=== PATIENT | male | born 1980 | race Caucasian/White ===

== ENCOUNTER 2020-11-01 07:03 | Outpatient (CLI) | payer OTHER ==
--- NOTE | 2020-11-01 13:23 | MRI Report ---
PROCEDURE: Lumbar Spine W/O INDICATIONS: LOW BACK PAIN TECHNIQUE: Noncontrast sagittal T1 spin echo and T2 fast echo, sagittal STIR, axial T1 and T2 fast spin echo thr ough the lumbar spine. In cases with scoliosis, additional coronal T2 fast spin echo may be performe d. COMPARISON: None. FINDINGS: Image quality: Excellent. Alignment and Curvature: There is normal bony alignment. Bone Marrow: Marrow is of normal overall signal. No acute vertebral body compression fractures. Spinal Cord: Conus medullaris terminates at the L1-L2 level. Visualized cord demonstrates normal si gnal and size. Paraspinous Soft Tissues: No paravertebral masses. Discs: Minimal desiccation is present L5-S1. L1-L2: No disc bulge, spinal stenosis or foraminal narrowing. L2-L3: Minimal disc bulge without spinal stenosis or foraminal narrowing. L3-L4: Minimal disc bulge without spinal stenosis. Minimal bilateral foraminal narrowing. Epidural lipomatosis is present. L4-L5: Minimal disc bulge without spinal stenosis or foraminal narrowing. Epidural lipomatosis is p resent. L5-S1: Minimal disc bulge without spinal stenosis. Minimal bilateral foraminal narrowing. IMPRESSION: Minimal early degenerative changes as above. Reviewed by: Ana Jefferson MD on 11/01/2020 1:22 PM PDT Approved by: Ana Jefferson MD on 11/01/2020 1:22 PM PDT Station ID: [id number]
== END 2020-11-01 07:04 | disposition home or self-care (01) ==
LOC: DI 07:03
PROVIDERS: ATTEND Family Medicine
DX: E88.2 Lipomatosis, not elsewhere classified (principal); M48.061 Spinal stenosis, lumbar region without neurogenic claudication